=== PATIENT | male | born 1990 | race Caucasian/White ===

== ENCOUNTER 2020-08-17 10:10 | Day surgery (SDC) | payer OTHER, SELFPAY ==
[2020-08-17 10:25] VITALS: BP 144/89; PULSE 72; RESP 16; TEMP 36.4; O2SAT 96; BMI 30.1
--- NOTE | 2020-08-17 11:15 | DCINST_ITS ---
Discharge Diet: No Restrictions Discharge Activity: Return to Normal Activity Return to work on:: 08/17/20 May resume sexual activity in: No Restrictions Weight Bearing Status: Weight bearing as tolerated Call your doctor if your incision/area has: Continuous Slow Oozing, Sudden Increased Bleeding, Increased Pain/ Swelling, Increased Redness, Foul Smelling Discharge, Swelling at the incision site Call your doctor if you observe: Fever of 101 or Higher, Coldness, Increased Pain, Numbness or Tingling, Change in Color, Inability to urinate, Inability to have a bowel movement, Using more than one pad per hour, Shortness of breath, Dizziness, Fainting spells, Swelling in the ankles, Chest pain, Prolonged hiccoughing, Increased palpitations (irregular heartbeat), Calf discomfort, Uncontrolled pain Primary Care Physician: NAILA AC [Other] Test Results: Test results from this visit will be discussed in further detail at your follow- up appointment, if applicable. Please Follow Up With: Bhavik Rob, DO - as scheduled
--- NOTE | 2020-08-17 12:00 | RAD_ITS ---
STUDY: X-RAY - LUMBAR SPINE REASON FOR EXAM: Male, 30 years old. L4-S1 EPIDURAL INJECTION RIGHT TECHNIQUE: 1 view(s) of the lumbar spine were obtained. COMPARISON: None FINDINGS: Intraoperative imaging provided for right L4-S1 epidural injection. RAD/Lumbar Spine 2 or 3 Views IMPRESSION: Intraoperative images provided for right L4-S1 epidural injection. Electronically Signed: Dennis Ladd MD at 15:00 EST , Service support ,
[2020-08-17] MEDS: Lidocaine 1% (20 ml mdv) 20 ML Vial (12:06)
[2020-08-17] MEDS: Sodium Bicarbonate 50 MEQ/50 ML Vial (12:06)
[2020-08-17] MEDS: Bupivacaine 0.25% 30 ML Vial (12:06)
[2020-08-17] MEDS: Triamcinolone Acetonide 40 MG/ML Vial (12:06)
[2020-08-17 12:15] VITALS: BP 130/93; BP 144/89; PULSE 58; RESP 16; TEMP 36.3; O2SAT 100
[2020-08-17 12:30] VITALS: BP 144/89
--- NOTE | 2020-08-17 15:51 | OP.PCM_ITS ---
Problem List (1) Lumbar stenosis without neurogenic claudication Status: Acute Report of Operation Date of Procedure: 08/17/20 Pre-Operative Diagnosis: Lumbar stenosis without neurogenic claudication Post-Operative Diagnosis: Lumbar stenosis without neurogenic claudication Surgery/Procedure Performed:: Right L4-5 and L5-S1 transforaminal epidural steroid injection Description of Surgical Findings:: The patient was seen preop in the holding area. Risk and benefits of the procedure were explained to the patient and informed consent was obtained. The patient was transported to the procedure room, positioned prone on the fluoroscopy table. The back was prepped and draped in the usual sterile fashion. Sterile technique was used throughout. Under fluoroscopic guidance in the AP view, vertebral bodies were identified. The following sequence of events was performed independently prior to needle insertion. Using cephalocaudad tilt, superior endplates were squared and ipsilateral obliquing was performed. The target point is lateral to the lamina and below the pedicle. At no time did the needle cross the line formed medially by the pedicles. Corresponding skin and subcutaneous tissue needle entry sites were anesthetized with a 27-gauge 1- 1/2 inch needle using 1% lidocaine, 5 mL per level. Subsequently, a 22-gauge 5 inch spinal needle with a curved tip was advanced via a subpedicular approach to enter the neuroforamen at right L4-5 and L5-S1 respectively. Position was confirmed in AP, oblique, and lateral views. Subsequently an AP view, contrast was injected, positive epidural spread was noted. No intravascular or intrathecal uptake was noted. After negative aspiration, bupivacaine 0.25% 1 mL +1 mL of Kenalog 40 mg/mL for a total volume of 2 mL was injected in 1 mL aliquots to each level respectively. [place] were removed. No complications were noted. The patient was transported to recovery and monitored until discharge criteria were met. Type of Anesthesia:: Local Estimated Blood Loss (mL): None - Complications None
== END 2020-08-17 12:33 | disposition home or self-care (01) ==
LOC: SDC 10:11 → AC 10:13
PROVIDERS: Referring Provider Orthopaedic Surgery; Visit Provider Orthopaedic Surgery
PROC: 3E0S3BZ Introduction of Anesthetic Agent into Epidural Space, Percutaneous Approach (ICD-10-PCS; CPT 64484; principal; 2020-08-17 11:55)
DX: M48.061 Spinal stenosis, lumbar region without neurogenic claudication (principal); M47.26 Other spondylosis with radiculopathy, lumbar region; M51.36 Other intervertebral disc degeneration, lumbar region; E66.9 Obesity, unspecified; Z68.30 Body mass index [BMI] 30.0-30.9, adult
CPT/HCPCS: 64484; 64483; 72100